=== PATIENT | male | born 1990 | race African-American/Black ===

== ENCOUNTER 2016-10-30 15:38 | Emergency (ER) | payer OTHER | END 2016-10-30 17:45 | disposition home or self-care (01) | LOC: CED 15:38 | DX: I88.9 Nonspecific lymphadenitis, unspecified (principal) | CPT/HCPCS: 99282 ==

== ENCOUNTER 2016-12-21 23:40 | Emergency (ER) | payer OTHER ==
[~2016-12-21] VITALS: Ht 180.3 cm; Wt 63.5 kg
== END 2016-12-22 00:40 | disposition home or self-care (01) ==
LOC: CED 23:40 → CFTX 23:40
DX: H65.92 Unspecified nonsuppurative otitis media, left ear (principal)
CPT/HCPCS: 99282

== ENCOUNTER 2017-01-29 14:05 | Emergency (ER) | payer OTHER ==
[~2017-01-29] VITALS: Ht 180.3 cm; Wt 66.2 kg
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
== END 2017-01-29 17:05 | disposition home or self-care (01) ==
LOC: CED 14:05 → CFTX 14:05
DX: S23.3XXA Sprain of ligaments of thoracic spine, initial encounter (principal); X50.0XXA Overexertion from strenuous movement or load, initial encounter; Y92.69 Other specified industrial and construction area as the place of occurrence of the external cause; Y99.0 Civilian activity done for income or pay
CPT/HCPCS: 72072; 99283